=== PATIENT | male | born 1955 | race Caucasian/White ===

== ENCOUNTER 2019-05-05 14:17 | Outpatient (RCR) | payer OTHER, SELFPAY ==
[2019-05-05 14:54] VITALS: BP 164/72; PULSE 80; RESP 18; TEMP 36.9; BMI 29.2
--- NOTE | 2019-05-05 16:11 | RAD_ITS ---
STUDY: X-RAY - RIGHT TIBIA AND FIBULA REASON FOR EXAM: Male, 63 years old. right leg swelling with wounds. TECHNIQUE: 3 view(s) of the tibia and fibula were obtained. COMPARISON: None. FINDINGS: Normal visualized tibia. Normal visualized fibula. Nonspecific soft tissue swelling. RAD/Tibia & Fibula 2 Views IMPRESSION: Soft tissue swelling without evidence for radiopaque foreign bodies in the soft tissues, acute fracture or other significant bony pathology Electronically Signed: Fady Baez MD at 16:25 EDT , Service support ,
--- NOTE | 2019-05-05 16:17 | PN.PCM_ITS ---
(1) Ulcer of right lower extremity with fat layer exposed Status: Acute Current Visit: Yes Code(s): L97.912 - Non-pressure chronic ulcer of unspecified part of right lower leg with fat layer exposed (2) Skin ulcer of left foot Status: Acute Current Visit: Yes Code(s): L97.529 - Non-pressure chronic ulcer of other part of left foot with unspecified severity (3) Delayed wound healing Status: Acute Current Visit: Yes Code(s): T14.8XXD - Other injury of unspecified body region, subsequent encounter (4) Tobacco abuse Status: Acute Current Visit: Yes Code(s): Z72.0 - Tobacco use (5) Alcohol abuse Status: Acute Current Visit: Yes Code(s): F10.10 - Alcohol abuse, uncomplicated (6) Lower extremity edema Status: Acute Current Visit: Yes Code(s): R60.0 - Localized edema (7) Other specified peripheral vascular diseases Status: Acute Current Visit: Yes Code(s): I73.89 - Other specified peripheral vascular diseases (8) Psoriasis (a type of skin inflammation) Status: Acute Current Visit: Yes Code(s): L40.9 - Psoriasis, unspecified (9) Cellulitis of both lower extremities Status: Acute Current Visit: Yes Code(s): L03.115 - Cellulitis of right lower limb; L03.116 - Cellulitis of left lower limb Type of Wound Date of Service: 05/05/19 Chief Complaint: Right leg ulcer. left foot scab formation. Lower extremity skin irritation and redness History of Wound: This 63-year-old male was seen for right leg ulcer with an onset of approximately 3 weeks ago. He does not recall a trauma. He does have drainage. He also relates his legs have been swollen very irritated. He was placed on an oral antibiotic by his primary care provider and also a five day oral steroid course. They are less itchy and inflamed after he completed the steroid course. He is almost done completing the antibiotic he relates. The antibiotic that he was on was doxycycline. He had prior Unna boots applied. He does have some intermittent claudication however the exact distance which is occurs and is not confirmed. He relates he smokes 2 packs of cigarettes a day and drinks at least 10. Daily. He eats 1 meal a day. He denies rest paresthesias. He relates he has mild swelling in the legs however not at this time. Medications: Reviewed. Allergies: No known drug allergies. Past medical history: Hypertension, alcohol abuse, tobacco abuse. Social: As noted. Review of systems: Denies fever, chill, nausea, sore throat, cough, shortness of breath, chest pain, rest paresthesias, GI upset, dry eyes, rash to other areas of body. He reports leg discoloration, claudication Progress of Wound: Stable and new assessment today - Physical Exam Vital Signs Temp Pulse Resp BP 98.5 F 80 18 164/72 H 05/05/19 14:54 05/05/19 14:54 05/05/19 14:54 05/05/19 14:54 General: Alert, Oriented x3, Cooperative, No apparent distress HEENT: Atraumatic Extremities: No cyanosis, Capillary Refill Less than 3 Seconds, No Calf Tenderness - Negative Irina and Peck sign bilateral, Diminished Peripheral Pulses - Palpable DP and weak PT bilateral, Edema - Very mild bilateral lower extremities, Tenderness - Tenderness with also manipulation bilateral Skin: Ulcer/ Wound - There is skin discontinuity to the anterior central right leg with granular base. There appears to be some stellate shaped epithelialized cicatrix noted suggesting that maybe this started as a skin tear. There is no deep tissue exposed maceration or necrosis. The left medial heel does have some callus buildup and a questionably plaque-like formation. Upon gentle debridement there is some hemorrhagic tissue exposed and scant serous moisture. There is some adjacent skin invagination and no necrosis. He does have some rubor on dependency and some hyperpigmentation of the legs as well. There is no sherrie erythema, streaking, bogginess or fluctuance noted today to bilateral lower extremities, - - His lower extremity skin is hairless, thin, and atrophic bilateral Wound Measurements and Assessment WC - Nurse 1 - General Ulcer Measurement Start: 05/05/19 14:49 Freq: Status: Active Protocol: Activity Type Activity Date Activity User E-Sign Co-Sign Detail Recorded Client Recorded Date Recorded By Document 05/05/19 14:54 RB [id number] 05/05/19 15:03 RB 05/05/19 14:54 Wound Center Nurse 1 [Ulcer Assessment] 1. right tibia -Combined with other wound No -Current Size (cm) - Length 1.8 -Current Size (cm) - Width 1.2 -Current Size (cm) - Depth 0.1 -Total Square Cm 2.16 -Photo Taken Yes -Tunneling No -Undermining/Tunneling No -Circular Undermining No -Exudate Amt Small -Exudate Type Serosanguineous -Wound Margin Thickened -Granulation Amt Medium (34-66%) -Granulation Quality [place] -Slough/Fibrin Yes -Necrosis Amt Small (1-33%) -Necrotic Tissue Type Adherent Slough -Structure Exposed N/A -Texture (Kavita-wound Skin Appearance) Assessed -Moisture (Kavita-wound Skin Appearance Assessed,Dry/ ) Scaly -Color (Kavita-wound Skin Appearance) Assessed, Hemosiderin Staining -Temperature (Kavita-wound Skin No Abnormality Appearance) (Pt Warm) -Tenderness on Palpation (Kavita-wound No Skin Appearance) -Ulcer Cleansing Wound Cleanser -Foul Odor after Cleansing No -Anesthetic Used 4% Lidocaine Solution [Edema Assessment] -Lower Limb Edema Present Yes -Right Calf (cm) 36 -Right Ankle (cm) 24.5 -Left Calf (cm) 37 -Left Ankle (cm) 24 WC - Nurse 2 - General Ulcer CM Notes Start: 05/05/19 14:49 Freq: Status: Active Protocol: Activity Type Activity Date Activity User E-Sign Co-Sign Detail Recorded Client Recorded Date Recorded By Document 05/05/19 15:18 MW [id number] 05/05/19 15:28 MW 05/05/19 15:18 Wound Center Nurse 2 [Procedure/Treatment] 1. right tibia -Time 15:20 -Correct Patient Yes -Correct Side, Site, Position Yes -Correct Procedure Yes -Procedure Performed Yes -Type of Procedure Debridement -Clinical Debridement Subcutaneous -Post Debridement Size (cm) - Length 4.0 -Post Debridement Size (cm) - Width 3.0 -Post Debridement Size (cm) - Depth 0.1 -Total Square Cm 12.00 -Wound/Ulcer Outcome Not Healed -Ulcer Cleansing Rinsed/ Irrigated with Saline -Foul Odor after Cleansing No -Bioengineered Tissue No -Bleeding Controlled with Pressure -Offloading No -Treatment Response Procedure Tolerated Well [See Physician Procedure note for Specifics] Pain Scale: 0-10 Numeric [Pain] -Is Patient Pain Free? Yes Musculoskeletal: Muscle Wasting, Tenderness - Ulcer manipulation, - - Active range of motion digits and ankle in all directions Neurological: Sensory exam intact to light touch and pain Psych/Mental Status: Normal Affect, Appropriate Debridement Note Post-Debridement Measurements/Treatment WC - Nurse 2 - General Ulcer CM Notes Start: 05/05/19 14:49 Freq: Status: Active Protocol: Activity Type Activity Date Activity User E-Sign Co-Sign Detail Recorded Client Recorded Date Recorded By Document 05/05/19 15:18 MW [id number] 05/05/19 15:28 MW 05/05/19 15:18 Wound Center Nurse 2 1. right tibia -Time 15:20 -Correct Patient Yes -Correct Side, Site, Position Yes -Correct Procedure Yes -Procedure Performed Yes -Type of Procedure Debridement -Clinical Debridement Subcutaneous -Post Debridement Size (cm) - Length 4.0 -Post Debridement Size (cm) - Width 3.0 -Post Debridement Size (cm) - Depth 0.1 -Total Square Cm 12.00 -Wound/Ulcer Outcome Not Healed -Ulcer Cleansing Rinsed/ Irrigated with Saline -Foul Odor after Cleansing No -Bioengineered Tissue No -Bleeding Controlled with Pressure -Offloading No -Treatment Response Procedure Tolerated Well Pain Scale: 0-10 Numeric Is Patient Pain Free? Yes Wound debrided: anterior leg Laterality: Right Type of Debridement: Excisional debridement Anesthesia Used: 5% Lidocaine Gel Depth: in the subcutaneous layer Percentage of wound debrided: 100 Instrument Used: #15 blade Tissue Removed: fibrous, devitalized subcutaneous, biofilm, slough Severity: Fat Layer Exposed Amount of bleeding with debridement: Mild Bleeding Controlled with: Pressure Patient tolerated procedure well - Additional Wound Wound debrided: medial heel Laterality: Left Type of Debridement: Selective debridement Depth: Down to and including healthy tissue Instrument Used: #15 blade Tissue Removed: fibrous, devitalized tissue, biofilm, slough Severity: Limited To Skin Breakdown Amount of bleeding with debridement: Mild Bleeding Controlled with: Pressure Patient tolerated procedure: Patient tolerated procedure well Assessment/Plan Active Problems Ulcer of right leg (Acute) Ulcer of right lower extremity with fat layer exposed (Acute) Skin ulcer of left foot (Acute) Delayed wound healing (Acute) Tobacco abuse (Acute) Alcohol abuse (Acute) Lower extremity edema (Acute) Other specified peripheral vascular diseases (Acute) Psoriasis (a type of skin inflammation) (Acute) Cellulitis of both lower extremities (Acute) Assessment: Right leg ulcer, fat layer exposed. Left foot ulcer, skin layer exposed. Cellulitis resolving bilateral lower extremities. Skin dermatitis potentially psoriatic related versus other etiology. Peripheral vascular disease suspected. Lower extremity edema mild. Malnutrition suspected. Alcohol abuse. Tobacco abuse. Rule out trauma right leg Plan: I reviewed and discussed his case. Subcutaneous excisional debridement was performed on the right leg and selective debridement was performed in the left foot as noted in the clinical panel. To change the dressing daily with Aquacel Ag. To wash his legs gently with soap and water on a daily basis. To elevate the limbs at rest. I do not recommend additional antibiotic or steroid course orally at this time. He was advised to complete his antibiotic course. This will be monitored close. We discussed potential need for punch biopsy of the skin to work-up the etiology of his condition. I am concerned of his smoking history and his vascular leg appearance. Noninvasive arterial vascular studies were ordered. Noninvasive venous Doppler exams were also ordered. Recommend holding off on formal compression until we get the arterial results. We discussed the importance of proper nutrition and advised him to eat 3 well- balanced meals a day and to significantly reduce his alcohol intake. Smoking cessation was also discussed in detail. An x-ray of the right leg was ordered to rule out any prior injury due to the stellate shaped cicatrix appearance of the site. Baseline lab work was also ordered including CBC, CMP, C-reactive protein, and hemoglobin A1c. I answered all his questions. He was advised to return to the wound healing center in 1 week or call sooner if he is any questions or concerns.
[2019-05-05 16:38] LABS: Absolute Neutrophil Count 6.6 X10^3/uL (2.0-7.7); Basophil# 0.05 X10^3/uL; Basophil% 0.5 % (0-1); Eosinophil# 0.06 X10^3/uL; Eosinophils% 0.6 % (0-5); Hematocrit 43.9 % (40-54); Hemoglobin 16.1 g/dL (13.0-16.5); Lymphocyte % 15.8 % (19-41); Mean Corp Hgb Conc 36.7 g/dL (32-36); Mean Corpuscular Hgb 32.9 pg (27.0-32.0); Mean Corpuscular Volume 89.8 fL (80-94); Mean Platelet Vol. 8.7 fl (6.2-12.0); Monocyte# 1.18 X10^3/uL; Monocyte% 12.5 % (0-10); NRBC Flagged by Analyzer 0 % (0-5); Neutrophil # 6.63 X10^3/uL (2.7-7.7); Neutrophil % 70.1 % (47-70); Platelet Count 167 K/mm3 (150-450); RBC Distribution Width CV 13.1 % (11.6-14.6); RBC Distribution Width SD 42.7 fl (35.1-43.9); Red Blood Count 4.89 M/mm3 (4.6-6.2); White Blood Count 9.5 K/mm3 (4.4-11.0)
[2019-05-05 16:55] LABS: Hemoglobin A1c 5.8 % (4.2-6.3)
[2019-05-05 17:28] LABS: ALB/GLOB Ratio 0.9 RATIO (0.9-2.4); AST(SGOT) 53 U/L (15-37); Alanine Aminotransfer ALT/SGPT 86 U/L (16-61); Albumin, Serum 3.7 g/dL (3.2-5.0); Alkaline Phosphatase 70 U/L (45-117); Anion Gap 8 (5-15); BUN 12 mg/dL (7-18); BUN/Creat Ratio 11.5 RATIO (10-20); CRP < 2.90 mg/L (0.0-3.0); Calcium,Total 9.2 mg/dL (8.5-10.1); Chloride 91 mmol/L (98-107); Creatinine, Serum 1.04 mg/dL (0.70-1.30); EST Glomerular Filtration Rate 77 mL/min (>60); Est Glom Filt Rate - Afr Amer 93 mL/min (>60); Estimated Creatinine Clearance 74.59 ml/min; Globulin 4.2 g/dL (2.2-4.2); Glucose 110 mg/dL (74-106); Potassium 3.4 mmol/L (3.5-5.1); Protein, Total 7.9 g/dL (6.4-8.2); Sodium Level 128 mmol/L (136-145)
== END 2019-05-11 23:59 ==
LOC: WC 14:17
PROVIDERS: Referring Provider Podiatrist; Visit Provider Podiatrist
DX: I73.89 Other specified peripheral vascular diseases (principal); L97.812 Non-pressure chronic ulcer of other part of right lower leg with fat layer exposed; L97.421 Non-pressure chronic ulcer of left heel and midfoot limited to breakdown of skin; F10.10 Alcohol abuse, uncomplicated; Z72.0 Tobacco use; L40.9 Psoriasis, unspecified; L03.115 Cellulitis of right lower limb; L03.116 Cellulitis of left lower limb; I10 Essential (primary) hypertension; Z79.899 Other long term (current) drug therapy
CPT/HCPCS: 11042; 36415; 73590; 80053; 83036; 85025; 86140; 99213; G0463

== ENCOUNTER 2019-05-26 12:30 | Outpatient (RCR) | payer MEDICAID, SELFPAY ==
[2019-05-12 01:02] VITALS: BP 164/72; PULSE 80; RESP 18; TEMP 36.9
[2019-05-12 11:35] VITALS: BP 160/44; PULSE 72; RESP 18; TEMP 36.3; BMI 29.2
--- NOTE | 2019-05-12 14:42 | PCM.WC.PN ---
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 Code(s): L97.521 - Non-pressure chronic ulcer of other part of left foot limited to breakdown of skin (2) Ulcer of right lower extremity with fat layer exposed Status: Chronic Code(s): L97.912 - Non-pressure chronic ulcer of unspecified part of right lower leg with fat layer exposed (3) Delayed wound healing Status: Chronic Code(s): T14.8XXD - Other injury of unspecified body region, subsequent encounter (4) Tobacco abuse Status: Chronic Code(s): Z72.0 - Tobacco use (5) Alcohol abuse Status: Chronic Code(s): F10.10 - Alcohol abuse, uncomplicated (6) Lower extremity edema Status: Chronic Code(s): R60.0 - Localized edema (7) Other specified peripheral vascular diseases Status: Suspected Code(s): I73.89 - Other specified peripheral vascular diseases Type of Wound Date of Service: 05/12/19 Chief Complaint: Right leg ulcer. left foot scab formation. Lower extremity skin irritation and redness History of Wound: This 63-year-old male was seen for right leg ulcer with an onset of approximately 4 weeks ago. He does not recall a trauma. He does have drainage. He also relates his legs have been swollen very irritated. He was placed on an oral antibiotic by his primary care provider and also a five day oral steroid course. They are less itchy and inflamed after he completed the steroid course. He is almost done completing the antibiotic he relates. The antibiotic that he was on was doxycycline. He had prior Unna boots applied. He does have some intermittent claudication however the exact distance which is occurs and is not confirmed. He relates he smokes 2 packs of cigarettes a day and drinks at least 10 beers Daily. He eats 1 meal a day. He denies rest paresthesias. He relates he has mild swelling in the legs however not at this time. His noninvasive vascular studies were temporarily canceled due to the coronavirus pandemic and will be rescheduled when it is safer to enter an additional healthcare facility or if he has a critical urgent status change. Progress of Wound: Improving bilateral - Physical Exam Vital Signs Temp Pulse Resp BP 97.3 F L 72 18 160/44 H 05/12/19 11:35 05/12/19 11:35 05/12/19 11:35 05/12/19 11:35 General: Alert, Oriented x3, Cooperative, No apparent distress HEENT: Atraumatic Extremities: No cyanosis, Capillary Refill Less than 3 Seconds, Diminished Peripheral Pulses, Edema Skin: Ulcer/ Wound - No purulence, erythema, streaking, odor, infection. Healing is noted to both sites. There is just some hemorrhagic tissue exposed to both sites and mild serous drainage to the left medial heel. The adjacent skin is hairless, atrophic, hyperpigmented and dysvascular in appearance. There is less skin scaling noted and his inflammatory processes also appear to decrease Wound Measurements and Assessment WC - Nurse 1 - General Ulcer Measurement Start: 05/12/19 11:35 Freq: Status: Active Protocol: Activity Type Activity Date Activity User E-Sign Co-Sign Detail Recorded Client Recorded Date Recorded By Document 05/12/19 11:35 ROM [id number] 05/12/19 11:38 ROM 05/12/19 11:35 Wound Center Nurse 1 [Ulcer Assessment] 1. right tibia -Combined with other wound No -Current Size (cm) - Length 0.1 -Current Size (cm) - Width 0.1 -Current Size (cm) - Depth 0.1 -Total Square Cm 0.01 -Photo Taken No -Epithelialization Large 67-100% -Tunneling No -Undermining/Tunneling No -Circular Undermining No -Exudate Amt None Present -Wound Margin Flat & Intact -Granulation Amt None Present (0 %) -Slough/Fibrin Yes -Necrosis Amt Large (67-100%) -Necrotic Tissue Type Adherent Slough -Structure Exposed N/A -Texture (Kavita-wound Skin Appearance) Assessed, Localized Edema -Moisture (Kavita-wound Skin Appearance Assessed,Dry/ ) Scaly -Color ([place]-wound Skin Appearance) Assessed -Temperature (Kavita-wound Skin No Abnormality Appearance) (Pt Warm) -Tenderness on Palpation (Kavita-wound No Skin Appearance) -Ulcer Cleansing Rinsed/ Irrigated with Saline -Foul Odor after Cleansing No -Anesthetic Used 4% Lidocaine Solution [Edema Assessment] -Lower Limb Edema Present Yes -Right Calf (cm) 36.7 -Right Ankle (cm) 24.6 -Left Calf (cm) 36.8 -Left Ankle (cm) 24.8 WC - Nurse 2 - General Ulcer CM Notes Start: 05/12/19 11:35 Freq: Status: Active Protocol: Activity Type Activity Date Activity User E-Sign Co-Sign Detail Recorded Client Recorded Date Recorded By Document 05/12/19 11:38 JF [id number] 05/12/19 11:40 05/12/19 11:38 Wound Center Nurse 2 [Procedure/Treatment] 1. right tibia -Correct Patient No -Correct Side, Site, Position No -Correct Procedure No -Procedure Performed No -Wound/Ulcer Outcome Not Healed -Ulcer Cleansing Rinsed/ Irrigated with Saline -Foul Odor after Cleansing No [See Physician Procedure note for Specifics] Pain Scale: 0-10 Numeric [Pain] -Is Patient Pain Free? Yes Musculoskeletal: No Tenderness to Palpation of Joints or Extremities, Muscle Wasting Neurological: Sensory exam intact to light touch and pain Psych/Mental Status: Normal Affect, Appropriate Debridement Note Post-Debridement Measurements/Treatment - Nurse 2 - General Ulcer Notes Start: 05/12/19 11:35 Freq: Status: Active Protocol: Activity Type Activity Date Activity User E-Sign Co-Sign Detail Recorded Client Recorded Date Recorded By Document 05/12/19 11:38 JF [id number] 05/12/19 11:40 05/12/19 11:38 Wound Center Nurse 2 1. right tibia -Correct Patient No -Correct Side, Site, Position No -Correct Procedure No -Procedure Performed No -Wound/Ulcer Outcome Not Healed -Ulcer Cleansing Rinsed/ Irrigated with Saline -Foul Odor after Cleansing No Pain Scale: 0-10 Numeric Is Patient Pain Free? Yes Wound debrided: right leg and left medial heel No debridement was completed today - Very superficial some hemorrhagic tissue noted only Assessment/Plan Assessment: Right leg ulcer, fat layer exposed?improving. Left foot ulcer, skin layer exposed?improving. Cellulitis resolving bilateral lower extremities. Skin dermatitis potentially psoriatic related versus other etiology. Peripheral vascular disease suspected. Lower extremity edema mild. Malnutrition suspected. Alcohol abuse. Tobacco abuse Plan: I reviewed and discussed his case. Both ulcer sites have significantly improved and no debridement was performed today. There is only some hemorrhagic tissue and progressive peripheral epithelialization noted. To change the dressing daily with Aquacel Ag and Adaptic. To wash his legs gently with soap and water on a daily basis. To elevate the limbs at rest. I do not recommend additional antibiotic or steroid course orally at this time. He was advised to complete his antibiotic course. This will be monitored close. We discussed potential need for punch biopsy of the skin to work-up the etiology of his condition. I am concerned of his smoking history and his vascular leg appearance. Noninvasive arterial vascular studies were ordered and this is temporarily placed on hold until the coronavirus pandemic passes. Noninvasive venous Doppler exams were also ordered and this will be rescheduled. I recommend only performing light compression therapy of Tubigrip until we further confirm his arterial status. We discussed the importance of proper nutrition and advised him to eat 3 well-balanced meals a day and to significantly reduce his alcohol intake. Smoking cessation was also discussed in detail. An x-ray of the right leg was ordered to rule out any prior injury due to the stellate shaped cicatrix appearance of the site. This was negative for acute fracture, dislocation, foreign body, or other infectious changes to the soft tissue or bone. Baseline lab work was also ordered including CBC, CMP, C-reactive protein, and hemoglobin A1c. His white blood cell count was 9.5. C-reactive protein level was normal. Hemoglobin A1c was 5.8%. There were no other gross abnormalities noted. I answered all his questions. He was advised to return to the wound healing center in 1 week or call sooner if he is any questions or concerns. I suspect underlying medical condition is contributing to his presentation in addition to his suspected peripheral vascular disease. Other work-up may warrant punch biopsy of the skin or other rheumatological or medical work-up.
--- NOTE | 2019-05-26 13:28 | PN.PCM_ITS ---
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 to breakdown of skin (2) Ulcer of right lower extremity with fat layer exposed Status: Resolved Current Visit: Yes Code(s): L97.912 - Non-pressure chronic ulcer of unspecified part of right lower leg with fat layer exposed (3) Delayed wound healing Status: Chronic Current Visit: Yes Code(s): T14.8XXD - Other injury of unspecified body region, subsequent encounter (4) Tobacco abuse Status: Chronic Current Visit: Yes Code(s): Z72.0 - Tobacco use (5) Alcohol abuse Status: Chronic Current Visit: Yes Code(s): F10.10 - Alcohol abuse, uncomplicated (6) Lower extremity edema Status: Chronic Current Visit: Yes Code(s): R60.0 - Localized edema (7) Other specified peripheral vascular diseases Status: Suspected Current Visit: Yes Code(s): I73.89 - Other specified peripheral vascular diseases (8) Skin inflammation Status: Acute Current Visit: Yes Code(s): L08.9 - Local infection of the skin and subcutaneous tissue, unspecified Type of Wound Date of Service: 05/26/19 Chief Complaint: Right leg ulcer healing. left foot ulcer. Lower extremity skin irritation and redness, now affecting the upper extremities and back skin History of Wound: This 63-year-old male was seen for right leg ulcer with an onset of approximately 1-1/2 months ago. This is a telehealth visit and his sister, Nancy (cell [phone]) help facilitate this interaction. He does not recall a trauma. He does have drainage that is described as a weeping to the right leg and also the left foot. He also has some new left foot cracking that is very raw. He did follow-up with his primary care provider Patsy Montenegro. He was placed on an updated round of oral antibiotic and oral steroids. He relates the itching and redness have returned to his legs and he is concerned of all of this inflammation. He also now relates that it is involving both upper extremities and the skin on his back. He relates he smokes 2 packs of cigarettes a day. His noninvasive vascular studies were temporarily canceled due to the coronavirus pandemic and will be rescheduled when it is safer to enter an additional healthcare facility or if he has a critical urgent status change. This will be rescheduled hopefully soon. He relates he also needs help ordering additional supplies. He wears Tubigrip's for edema management. He denies fever, chill, nausea vomiting, or odor. He denies taking his temperature in a measured manner.This is a telehealth visit performed at 12:30 PM today to avoid healthcare exposure during the coronavirus pandemic. He verbally co nsented to completing the telehealth visit from his home with the provider at the wound healing center. Anibal understands this is a medical encounter and will be charted and princess part of his insurance claim as well. The duration of the telehealth vision that included audio and camera use lasted 16 minutes and 35 seconds. Progress of Wound: Wound improvement right leg. Stable left foot ulcer. Worsening skin inflammation to upper and lower extremities - Physical Exam Vital Signs Temp Pulse Resp BP 97.3 F L 72 18 160/44 H 05/12/19 11:35 05/12/19 11:35 05/12/19 11:35 05/12/19 11:35 General: Alert, Oriented x3, Cooperative, No apparent distress Extremities: No cyanosis, Edema - Mild bilateral lower extremities Skin: Ulcer/ Wound - There is no purulence on expression noted, no distinct erythema or streaking. He does have diffuse violaceous and ruborous changes to the lower extremities that is rash like, dry, scaling. It is also noted he has these identical skin changes to the upper extremities that is directly visualized via telehealth and he reports this is also on his back as well. New skin changes include the dorsal left foot has a crack with granular tissue exposed right at the level of the ankle crease Musculoskeletal: Muscle Wasting Psych/Mental Status: Normal Affect, Appropriate Debridement Note Post-Debridement Measurements/Treatment WC - Nurse 2 - General Ulcer CM Notes Start: 05/12/19 11:35 Freq: Status: Active Protocol: Activity Type Activity Date Activity User E-Sign Co-Sign Detail Recorded Client Recorded Date Recorded By Document 05/12/19 11:38 ROM [id number] 05/12/19 11:40 ROM 05/12/19 11:38 Wound Center Nurse 2 1. right tibia -Correct Patient No -Correct Side, Site, Position No -Correct Procedure No -Procedure Performed No -Wound/Ulcer Outcome Not Healed -Ulcer Cleansing Rinsed/ Irrigated with Saline -Foul Odor after Cleansing No Pain Scale: 0-10 Numeric Is Patient Pain Free? Yes No debridement was completed today - Telehealth visit Assessment/Plan Active Problems Skin inflammation (Acute) Non-pressure chronic ulcer of other part of left foot limited to breakdown of skin (Chronic) Delayed wound healing (Chronic) Tobacco abuse (Chronic) Alcohol abuse (Chronic) Lower extremity edema (Chronic) Assessment: Right leg ulcer, fat layer exposed?improving. Left foot ulcer, skin layer exposed?stable. Skin dermatitis potentially psoriatic related versus other etiology. Peripheral vascular disease suspected. Lower extremity edema mild. Malnutrition suspected. Alcohol abuse. Tobacco abuse Plan: I reviewed and discussed his case. The right leg ulcer sites has significantly improved and no debridement was performed today because this is a telehtealth visit. The left ulcer appears stable and new skin cracking to dorsal left foot is noted. To change the dressing daily with hydrogel and Adaptic. Nursing staff will help him order additional wound care supplies and this will be coordinated. To wash his legs gently with soap and water on a daily basis. To avoid soaking.To elevate the limbs at rest. Alternative compression and primary wound care dressings will be considered and changed with caution as his vascular status has not been confirmed. An unna boot may also be considered at future visits. I am concerned about his full body skin inflammatory changes that have appeared to exacerbate since his last in office visit. I am concerned of his smoking history and his vascular leg appearance. Noninvasive arterial vascular studies were ordered and this is temporarily placed on hold until the coronavirus pandemic passes. Noninvasive venous Doppler exams were also ordered and this will be rescheduled. I recommend only performing light compression therapy of Tubigrip until we further confirm his arterial status. We previously also discussed the importance of proper n utrition and advised him to eat 3 well-balanced meals a day and to significantly reduce his alcohol intake. Smoking cessation was also discussed in detail. An x-ray of the right leg was ordered to rule out any prior injury due to the stellate shaped cicatrix appearance of the site. This was negative for acute fracture, dislocation, foreign body, or other infectious changes to the soft tissue or bone. Baseline lab work was also ordered including CBC, CMP, C- reactive protein, and hemoglobin A1c. His white blood cell count was 9.5. C- reactive protein level was normal. Hemoglobin A1c was 5.8%. There were no other gross abnormalities noted. I suspect underlying medical condition is contributing to his presentation in addition to his suspected peripheral vascular disease. Other work-up may warrant punch biopsy of the skin or other rheumatological or medical work-up. I am concerned about him using additional antibiotics for this does not seem consistent with an infection at this time. He may also be having a rebound inflammatory process to oral and / or topical steriods which is a concern with continued use. I would like to futher review his medical information and management with his primary care provider Patsy Montenegro who will be contacted via a call. We discussed potential need for punch biopsy of the skin to work-up the etiology of his condition. I answered all his questions. He was advised to return to the wound healing center in 1 week or call sooner if he is any questions or concerns. He understands he may see an additional provider whom is currently contracted with his insurance. If this provider is not available, I will continue to see him during the duration of his current condition for continuity of medical management.
== END 2019-06-10 23:59 ==
LOC: WC 12:30
PROVIDERS: Referring Provider Podiatrist; Visit Provider Podiatrist
DX: L97.521 Non-pressure chronic ulcer of other part of left foot limited to breakdown of skin (principal); L97.812 Non-pressure chronic ulcer of other part of right lower leg with fat layer exposed; L03.116 Cellulitis of left lower limb; L03.115 Cellulitis of right lower limb; I73.9 Peripheral vascular disease, unspecified; R60.0 Localized edema; F10.10 Alcohol abuse, uncomplicated; F17.210 Nicotine dependence, cigarettes, uncomplicated; Z79.899 Other long term (current) drug therapy
CPT/HCPCS: 99213; G0463

== ENCOUNTER 2019-07-09 14:00 | Outpatient (RCR) | payer MEDICAID, SELFPAY ==
[2019-05-12 11:35] VITALS: BMI 29.2
[2019-06-11 00:20] VITALS: BP 160/44; PULSE 72; RESP 18; TEMP 36.3
[2019-06-25 14:52] VITALS: BP 176/97; PULSE 74; RESP 16; TEMP 36.6; BMI 29.2
--- NOTE | 2019-06-25 18:03 | PCM.HP.STD ---
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 psoriasis The patient is a 63 year old M who presents to the wound healing center for treatment and evaluation of skin breakdown and irritation. He was recently seen by Dr. Andino through a telehealth visit and treated with hydrogel and adaptic dressings to his leg's bilaterally and has had improvement but still does have an area of his left medial foot that has thick scaly plaque-like appearance. He underwent lab testing but has not had vascular testing due to the COVID-19 pandemic. An xray was also preformed that did not identify any fracture or undrelying bony etiology that would be causing his skin irritation. Labs and xrays were reviewed and there is no underlying diabetes at this time although his blood sugar was slightly elevated on CMP, his A1C was 5.8%, no significant renal disease or malnutrition seen on CMP, he does have elevated LFTs with h/o fatty liver in the past and hyponatremia, question alcohol abuse history. He does not have elevated CRP. He denies biopsy of the lesion of his left foot, although it was mentioned that this was recommended by Dr. Andino to his PCP. He reports that he has experience improvement with Clobetasol cream in the past to the area. He has been applying vaseline to his legs and they are improved. He is relatively unkempt in appearance and smells heavily of tobacco/cigarette smoke. Past Medical History Past Medical History (Chronic Problems): Chronic Problems Skin inflammation (Chronic) Non-pressure chronic ulcer of other part of left foot limited to breakdown of skin (Chronic) Skin ulcer of left foot (Chronic) Delayed wound healing (Chronic) Tobacco abuse (Chronic) Alcohol abuse (Chronic) Lower extremity edema (Chronic) Allergies No Known Allergies Allergy (Verified 05/05/19 14:49) Home Medications: Ambulatory Orders Medication Instructions Recorded Amlodipine Besylate/Benazepril 1 ea PO DAILY 05/05/19 [Amlodipine-Benazepril 10-20 mg] Doxycycline 100 mg PO BID 05/05/19 Hydrochlorothiazide [Hctz] 25 mg PO DAILY 05/05/19 Metoprolol Succinate 100 mg PO DAILY 05/05/19 Tiotropium Br/Olodaterol HCl 4 gm IH DAILY 05/05/19 [Stiolto Respimat Inhal [place]] Smoking Status: Heavy Smoker (>10/day) Tobacco Use: Cigarettes Alcohol: Occasional Drugs: None Review of Systems Constitutional: Denies: Chills, Fever, Weight Change HEENT: Denies: Head Aches, Sinus Congestion, Sinus Drainage Cardiovascular: Denies: Chest Pain, Palpitations Respiratory: Reports: Cough. Denies: Shortness of Breath, Wheezing Gastrointestinal: Denies: Abdominal Pain, Nausea, Vomiting Genitourinary: Denies: Dysuria Musculoskeletal: Denies: Joint Pain, Joint Tenderness Skin: Reports: Rash, Skin Changes Neurological: Denies: Numbness, Tingling, Focal weakness Psychiatric: Denies: Anxiety, Depression, Homicidal Ideations, Suicidal Ideations Hematologic/ Lymphatic: Denies: Easy Bruising, Easy Bleeding VTE Information - Inpt Only VTE Present on Admission: No - ambulatory patient - Physical Exam Vitals/I&O's: Vital Signs Temp Pulse Resp BP 97.9 F 74 16 176/97 H 06/25/19 14:52 06/25/19 14:52 06/25/19 14:52 06/25/19 14:52 Oxygen Delivery Method Room Air Weight: 89.811 kg Body Mass Index (BMI) 29.2 General: Alert, Oriented x3, Cooperative HEENT: Atraumatic, PERRLA, EOMI, Normocephalic Oral: Moist Mucosa Abdomen: Soft, Non Tender Extremities: Diminished Peripheral Pulses, Edema Skin: Ulcer/ Wound Psych/Mental Status: Normal Affect, Appropriate Assessment/Plan All Active Problems Ulcer of right leg (Acute) Ulcer of right lower extremity with fat layer exposed (Resolved) Cellulitis of both lower extremities (Acute) Laureano's legs were evaluated today and no debridement was performed as there were no open wounds. Will have him use clobetasol to his left medial foot and continue vaseline to his lower legs bilaterally and obtain vascular testing to r/o PAD. If lack of improvement in the left medial foot plaque with steroids would perform biopsy. Encouraged him to call with any edema, increased odor, erythema or drainage or worsening of his legs. Will f/u in 2 weeks.
[2019-07-02 15:59] VITALS: BP 148/63; PULSE 81; RESP 18; TEMP 36.6; BMI 29.2
--- NOTE | 2019-07-02 19:03 | PN.PCM_ITS ---
(1) Skin inflammation Status: Chronic Current Visit: Yes Code(s): L08.9 - Local infection of the skin and subcutaneous tissue, unspecified (2) Non-pressure chronic ulcer of other part of left foot limited to breakdown of skin Status: Chronic Current Visit: Yes Code(s): L97.521 - Non-pressure chronic ulcer of other part of left foot limited to breakdown of skin (3) Skin ulcer of left foot Status: Chronic Current Visit: Yes Qualifiers: Non-pressure ulcer stage: limited to breakdown of skin Qualified Code(s): L97.521 - Non-pressure chronic ulcer of other part of left foot limited to breakdown of skin Code(s): L97.529 - Non-pressure chronic ulcer of other part of left foot with unspecified severity (4) Tobacco abuse Status: Chronic Current Visit: Yes Code(s): Z72.0 - Tobacco use (5) Lower extremity edema Status: Chronic Current Visit: Yes Code(s): R60.0 - Localized edema (6) Psoriasis (a type of skin inflammation) Status: Suspected Current Visit: Yes Code(s): L40.9 - Psoriasis, unspecified Type of Wound Date of Service: 07/09/19 Chief Complaint: left foot ulcers History of Wound: This 63-year-old male was seen previously by Dr. Andino for ulcer of his right leg and skin irritation as well as ulceration of left medial foot. He also has left foot cracking that is very raw. He has had follow-up with his primary care provider Patsy Montenegro as well as dermatology. He was recently treated with oral antibiotic and 2 courses of oral steroids with improvemnt in his skin irritation and plaques. He has used clobetasol previously to his psoriasis and most recently has been prescribed triamcinolone acetonide by dermatology in the last 2 weeks which he notes has significantly improved his skin irritation since he was seen by Dr. Andino. He relates the itching and redness have improved to his legs and both upper extremities and the skin on his back. He smokes 2 packs of cigarettes a day. His noninvasive vascular studies were temporarily canceled due to the coronavirus pandemic and have been rescheduled for 07/09/2019. He wears Tubigrip's for edema management. He denies fever, chill, nausea vomiting, or odor. 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 He has been using steroid cream and has notable improvement with decrease in drainage. He does note that in the last week he has had cracking of skin between his toes and at crease of base of his grea toes b/l. - Physical Exam Vital Signs Temp Pulse Resp BP 97.8 F 81 18 148/63 H 07/02/19 15:59 07/02/19 15:59 07/02/19 15:59 07/02/19 15:59 General: Alert, Oriented x3, Cooperative, No apparent distress, - - heavy odor of tobacco HEENT: Atraumatic, Normocephalic Oral: Moist Mucosa Extremities: Edema Skin: Ulcer/ Wound Wound Measurements and Assessment WC - Nurse 1 - General Ulcer Measurement Start: 06/21/19 15:22 Freq: Status: Active Protocol: Activity Type Activity Date Activity User E-Sign Co-Sign Detail Recorded Client Recorded Date Recorded By Document 07/02/19 15:59 [facility] [id number] 07/02/19 16:06 [facility] 07/02/19 15:59 Wound Center Nurse 1 [Ulcer Assessment] #2- L PLANTAR TOE (1-4) CREASE CLUSTER /FISSURES -Combined with other wound No -Current Size (cm) - Length 0.3 -Current Size (cm) - Width 17.5 -Current Size (cm) - Depth 0.3 -Total Square Cm 5.25 -Date of Last Picture (Recall this 07/02/19 field) -Photo Taken Yes -Epithelialization None Present -Tunneling No -Undermining/Tunneling No -Circular Undermining No -Exudate Amt None Present -Wound Margin Distinct, Outline Attached -Granulation Amt Medium (34-66%) -Granulation Quality Red -Slough/Fibrin Yes -Necrosis Amt Small (1-33%) -Necrotic Tissue Type Adherent Slough -Texture (Kavita-wound Skin Appearance) Assessed,Callus ,Scarring -Moisture (Kavita-wound Skin Appearance Assessed,Dry/ ) Scaly -Color (Kavita-wound Skin Appearance) Assessed -Temperature (Kavita-wound Skin No Abnormality Appearance) (Pt Warm) -Tenderness on Palpation (Kavita-wound No Skin Appearance) -Ulcer Cleansing SOAPY WATER -Foul Odor after Cleansing No -Anesthetic Used 4% Lidocaine Solution WC - Nurse 2 - General Ulcer CM Notes Start: 06/21/19 15:22 Freq: Status: Active Protocol: Activity Type Activity Date Activity User E-Sign Co-Sign Detail Recorded Client Recorded Date Recorded By Document 07/02/19 16:39 DV [id number] 07/02/19 17:02 DV 07/02/19 16:39 Wound Center Nurse 2 [Procedure/Treatment] #3 LEFT MEDIAL HEEL -Time 16:59 -Correct Patient Yes -Correct Side, Site, Position Yes -Correct Procedure Yes -Procedure Performed Yes -Type of Procedure Debridement -Clinical Debridement Selective -Post Debridement Size (cm) - Length 5.0 -Post Debridement Size (cm) - Width 6.0 -Post Debridement Size (cm) - Depth 0.1 -Total Square Cm 30.00 #2- L PLANTAR TOE (1-4) CREASE CLUSTER /FISSURES -Time 16:48 -Correct Patient Yes -Correct Side, Site, Position Yes -Correct Procedure Yes -Procedure Performed Yes -Type of Procedure Debridement -Clinical Debridement Selective -Post Debridement Size (cm) - Length 0.3 -Post Debridement Size (cm) - Width 5.0 -Post Debridement Size (cm) - Depth 0.1 -Total Square Cm 1.50 -Wound/Ulcer Outcome Not Healed -Ulcer Cleansing Rinsed/ Irrigated with Saline -Foul Odor after Cleansing No -Bioengineered Tissue No -Bleeding Controlled with Pressure -Offloading No [See Physician Procedure note for Specifics] Pain Scale: 0-10 Numeric [Pain] -Is Patient Pain Free? Yes Psych/Mental Status: Normal Affect, Appropriate Debridement Note Post-Debridement Measurements/Treatment WC - Nurse 2 - General Ulcer CM Notes Start: 06/21/19 15:22 Freq: Status: Active Protocol: Activity Type Activity Date Activity User E-Sign Co-Sign Detail Recorded Client Recorded Date Recorded By Document 06/25/19 15:19 DV [id number] 06/25/19 15:23 DV Document 07/02/19 16:39 DV [id number] 07/02/19 17:02 DV 06/25/19 07/02/19 15:19 16:39 Wound Center Nurse 2 #3 LEFT MEDIAL HEEL -Time 16:59 -Correct Patient Yes -Correct Side, Site, Position Yes -Correct Procedure Yes -Procedure Performed Yes -Type of Procedure Debridement -Clinical Debridement Selective -Post Debridement Size (cm) - Length 5.0 -Post Debridement Size (cm) - Width 6.0 -Post Debridement Size (cm) - Depth 0.1 -Total Square Cm 30.00 #2- L PLANTAR TOE (1-4) CREASE CLUSTER/ FISSURES -Time 16:48 -Correct Patient Yes -Correct Side, Site, Position Yes -Correct Procedure Yes -Procedure Performed Yes -Type of Procedure Debridement -Clinical Debridement Selective -Post Debridement Size (cm) - Length 0.3 -Post Debridement Size (cm) - Width 5.0 -Post Debridement Size (cm) - Depth 0.1 -Total Square Cm 1.50 -Wound/Ulcer Outcome Not Healed -Ulcer Cleansing Rinsed/ Irrigated with Saline -Foul Odor after Cleansing No -Bioengineered Tissue No -Bleeding Controlled with Pressure -Offloading No 1. right tibia -Time 15:22 -Correct Patient Yes -Correct Side, Site, Position Yes -Correct Procedure No -Procedure Performed No -Post Debridement Size (cm) - Length 0 -Post Debridement Size (cm) - Width 0 -Post Debridement Size (cm) - Depth 0 -Total Square Cm 0 -Wound/Ulcer Outcome Healed- Epithelialized Pain Scale: 0-10 Numeric Is Patient Pain Free? Yes Yes Wound debrided: left medial heel Laterality: Left Type of Debridement: Excisional debridement Anesthesia Used: 4% Lidocaine Solution, 5% Lidocaine Gel Depth: Down to and including healthy tissue, in the subcutaneous layer Percentage of wound debrided: 100 Instrument Used: #15 blade, Forceps Tissue Removed: yellow slough, devitalized tissue Severity: Fat Layer Exposed Amount of bleeding with debridement: Mild Bleeding Controlled with: Compression and gauze Patient tolerated procedure well - Additional Wound Wound debrided: right plantar great toe Laterality: Right Type of Debridement: Excisional debridement Anesthesia Used: 4% Lidocaine Solution Depth: Down to and including healthy tissue, in the subcutaneous layer Percentage of wound debrided: 100 Instrument Used: #15 blade, Forceps Tissue Removed: Yellow slough, devitalized tissue Severity: Fat Layer Exposed Amount of bleeding with debridement: Mild Bleeding Controlled with: Compression and gauze Patient tolerated procedure: Patient tolerated procedure well Assessment/Plan Active Problems Skin inflammation (Chronic) 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 Left foot ulcer, skin layer exposed?stable. Skin dermatitis potentially psoriatic related versus other etiology. Peripheral vascular disease suspected. Lower extremity edema mild. Malnutrition suspected. Alcohol abuse. Tobacco abuse Plan: The left medial foot ulcer is improved. The creases of his toes of his left foot were evaluated and debrided today as well and I feel they are related to his psoriasis and dishydrosis. He will continue to use triamcinolone and gauze. He will change the dressing daily. He is to wash his legs gently with soap and water on a daily basis. To avoid soaking. To elevate the limbs at rest. I am concerned of his smoking history and his vascular leg appearance. Noninvasive arterial vascular studies were ordered and this is temporarily placed on hold until the coronavirus pandemic passes. Noninvasive venous Doppler exams were also ordered and rescheduled. We previously also discussed the importance of proper nutrition and advised him to eat 3 well-balanced meals a day and to significantly reduce his alcohol intake. Smoking cessation was also discussed in detail. Hemoglobin A1c was 5.8%. There were no other gross abnormalities noted. He will follow up in 2 weeks or sooner if needed. He is scheduled for vascular tests on 07/09/2019.
--- NOTE | 2019-07-09 13:28 | ART_ITS ---
Reason For Study: Left heel ulcer Procedure A bilateral lower extremity continuous wave Doppler with analog waveform analysis,segmental pressures,and ankle brachial indexes without exercise. Left Segmental Pressures Left brachial= 181mmHg. Left posterior tibial artery = 198mmHg. Left dorsalis pedis artery = 183mmHg. Left digit = 171 mmHg. The left dorsalis pedis waveforms are triphasic. The left posterior tibial artery waveforms are triphasic. Right Segmental Pressures Right brachial= 178mmHg. Right posterior tibial artery = 200mmHg. Right dorsalis pedis artery = 215mmHg. Right digit = >254 mmHg. The right dorsalis pedis waveforms are triphasic. The right posterior tibial artery waveforms are triphasic. Indices The right ankle brachial index by the dorsalis pedis is 1.19. The right ankle brachial index by the posterior tibial artery is 1.10. The right digital-brachial index is NC. The left ankle brachial index by the dorsalis pedis is 1.01. The left ankle brachial index by the posterior tibial artery is 1.09. The left digital-brachial index is 0.94. Interpretation Summary Triphasic Doppler waveforms are noted at ankle level bilaterally. Pulse-volume recordings appear satisfactory at all levels bilaterally, including low-thigh, calf, ankle, and digital levels. Resting ankle-brachial indices are normal bilaterally. The right digital-brachial index could not be determined due to the non-compressibility of the vasculature. The left digital-brachial index is normal. There is no evidence of significant arterial occlusive disease in the lower extremities bilaterally. Ordering Physician: Dhara Orantes Referring Physician: Patsy Montenegro Performed By: Lydia Blevins RVT
--- NOTE | 2019-07-09 13:28 | VDLE_ITS ---
Reason For Study: Venous insufficiency RIGHT LEFT CFV is compressible, spontaneous, phasic, CFV is compressible, spontaneous, phasic, competent and demonstrates normal competent, and demonstrates normal augmentation. augmentation. FV is compressible, spontaneous, phasic, FV is compressible, spontaneous, phasic, competent and demonstrates normal competent and demonstrates normal augmentation. augmentation. POP V is compressible, spontaneous, phasic, POP V is compressible, spontaneous, phasic, competent and demonstrates normal competent and demonstrates normal augmentation. augmentation. T/P Trunk is compressible. T/P Trunk is compressible. PTV is compressible. PTV is compressible. RT PerV is compressible. LT PerV is compressible. SFJ is competent and measures 0.83 x 0.92 cm. SFJ is competent and measures 0.74 x 0.83 cm. GSV proximal thigh measures 0.28 x 0.26 cm. GSV proximal thigh measures 0.35 x 0.35 cm. GSV at knee measures 0.38 x 0.42 cm. GSV at knee measures 0.35 x 0.34 cm. GSV is competent throughout. GSV is competent throughout. SSV at junction is competent and measures SSV at junction is competent and measures 0.13 x 0.15 cm. 0.14 x 0.14 cm. Procedure Exam performed in department. A preliminary report was called and/or faxed to . Interpretation Summary Deep veins of the lower extremities are bilaterally patent and compressible segmentally. There is no evidence of deep vein thrombosis on either side. Valvular competence appears intact within the proximal deep venous systems bilaterally. The great saphenous veins appear bilaterally patent and compressible segmentally. Sapheno-femoral junctions are bilaterally competent . Valvular competence appears to be intact segmentally within the great saphenous veins bilaterally. Small saphenous veins are patent and competent bilaterally. Ordering Physician: Dhara Orantes Referring Physician: Patsy Montenegro Performed By: Lydia Blevins RVT
== END 2019-07-11 23:59 ==
LOC: CVS 14:00
PROVIDERS: Referring Provider Family Medicine; Visit Provider Family Medicine
DX: L97.912 Non-pressure chronic ulcer of unspecified part of right lower leg with fat layer exposed (principal); L30.9 Dermatitis, unspecified; I73.9 Peripheral vascular disease, unspecified; I87.2 Venous insufficiency (chronic) (peripheral)
CPT/HCPCS: 93923; 93970; 97597; 97598; 99213; G0463

== ENCOUNTER → 2019-07-09 14:26 | Outpatient (CLI) | payer MEDICAID, SELFPAY ==
[2019-07-02 15:59] VITALS: BMI 29.2
[2019-07-12 03:06] LABS: QNTFERON TB Mitogen Value > 10.00 IU/mL (.); QNTFERON TB Nil Value 0.04 IU/mL (.); QNTFERON TB1+ Ag Value 0.05 IU/mL (.); QNTFERON TB2+ Ag Value 0.03 IU/mL (.)
[2019-07-12 04:44] LABS: QNTIFERON TB Positive Criteria Negative (Negative)
== END ==
PROVIDERS: Referring Provider Dermatology; Visit Provider Dermatology
DX: L40.0 Psoriasis vulgaris (principal); Z79.899 Other long term (current) drug therapy
CPT/HCPCS: 36415; 86480; 93923; 93970

== ENCOUNTER 2019-07-16 09:14 | Outpatient (RCR) | payer MEDICAID, SELFPAY ==
[2019-07-02 15:59] VITALS: BMI 29.2
[2019-07-12 00:29] VITALS: BP 148/63; PULSE 81; RESP 18; TEMP 36.6
[2019-07-16 13:11] VITALS: BP 179/86; PULSE 75; RESP 18; TEMP 36.9; BMI 29.2
--- NOTE | 2019-07-16 17:06 | PN.PCM_ITS ---
(1) Skin ulcer of left foot Status: Chronic Qualifiers: Non-pressure ulcer stage: limited to breakdown of skin Qualified Code(s): L97.521 - Non-pressure chronic ulcer of other part of left foot limited to breakdown of skin Code(s): L97.529 - Non-pressure chronic ulcer of other part of left foot with unspecified severity Type of Wound Date of Service: 07/16/19 Chief Complaint: left foot ulcers History of Wound: This 63-year-old male was seen previously by Dr. Andino for ulcer of his right leg and skin irritation as well as ulceration of left medial foot. He also has left foot cracking that is very raw. He has had follow-up with his primary care provider Patsy Montenegro as well as dermatology. He was recently treated with oral antibiotic and 2 courses of oral steroids with improvemnt in his skin irritation and plaques. He has used clobetasol previously to his psoriasis and most recently has been prescribed triamcinolone acetonide by dermatology in the last 2 weeks which he notes has significantly improved his skin irritation since he was seen by Dr. Andino. He relates the itching and redness have improved to his legs and both upper extremities and the skin on his back. He smokes 2 packs of cigarettes a day. His noninvasive vascular studies were temporarily canceled due to the coronavirus pandemic and have been rescheduled for 07/09/2019. He wears Tubigrip's for edema management. He denies fever, chill, nausea vomiting, or odor. 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 He has been using steroid cream and has notable improvement with decrease in drainage and is healed. - Physical Exam Vital Signs Temp Pulse Resp BP 98.5 F 75 18 179/86 H 07/16/19 13:11 07/16/19 13:11 07/16/19 13:11 07/16/19 13:11 General: Alert, Oriented x3, Cooperative, No apparent distress HEENT: Atraumatic, Normocephalic Skin: Ulcer/ Wound, Rash Present Wound Measurements and Assessment WC - Nurse 1 - General Ulcer Measurement Start: 07/16/19 13:11 Freq: Status: Active Protocol: Activity Type Activity Date Activity User E-Sign Co-Sign Detail Recorded Client Recorded Date Recorded By Document 07/16/19 13:11 RB [id number] 07/16/19 13:17 RB 07/16/19 13:11 Wound Center Nurse 1 [Ulcer Assessment] #3 LEFT MEDIAL HEEL -Combined with other wound No -Current Size (cm) - Length 0.1 -Current Size (cm) - Width 0.1 -Current Size (cm) - Depth 0.1 -Total Square Cm 0.01 -Tunneling No -Undermining/Tunneling No -Circular Undermining No -Exudate Amt Small -Exudate Type Serosanguineous -Wound Margin Flat & Intact -Granulation Amt Medium (34-66%) -Granulation Quality [place] -Slough/Fibrin Yes -Necrosis Amt Small (1-33%) -Necrotic Tissue Type Adherent Slough -Structure Exposed N/A -Texture ([place]-wound Skin Appearance) Assessed -Moisture ([place]-wound Skin Appearance Dry/Scaly ) -Color ([place]-wound Skin Appearance) Assessed -Temperature ([place]-wound Skin No Abnormality Appearance) (Pt Warm) -Tenderness on Palpation ([place]-wound No Skin Appearance) -Ulcer Cleansing Wound Cleanser -Foul Odor after Cleansing No -Anesthetic Used 5% Lidocaine Gel #2- L PLANTAR TOE (1-4) CREASE CLUSTER /FISSURES -Combined with other wound No -Current Size (cm) - Length 0 -Current Size (cm) - Width 0 -Current Size (cm) - Depth 0 -Total Square Cm 0 -Photo Taken Yes -Tunneling No -Undermining/Tunneling No -Circular Undermining No -Exudate Amt None Present -Wound Margin Flat & Intact -Granulation Amt Large (67-100%) -Granulation Quality [place] -Slough/Fibrin No -Necrosis Amt None Present (0 %) -Structure Exposed N/A -Texture ([place]-wound Skin Appearance) Assessed -Moisture ([place]-wound Skin Appearance Dry/Scaly ) -Color ([place]-wound Skin Appearance) Assessed -Temperature ([place]-wound Skin No Abnormality Appearance) (Pt Warm) -Tenderness on Palpation ([place]-wound No Skin Appearance) -Ulcer Cleansing Wound Cleanser -Foul Odor after Cleansing No WC - Nurse 2 - General Ulcer CM Notes Start: 07/16/19 13:11 Freq: Status: Active Protocol: Activity Type Activity Date Activity User E-Sign Co-Sign Detail Recorded Client Recorded Date Recorded By Document 07/16/19 14:13 DV [id number] 07/16/19 14:18 DV 07/16/19 14:13 Wound Center Nurse 2 [Procedure/Treatment] #3 LEFT MEDIAL HEEL -Time 14:16 -Correct Patient Yes -Correct Side, Site, Position Yes -Correct Procedure No -Procedure Performed No -Post Debridement Size (cm) - Length 0 -Post Debridement Size (cm) - Width 0 -Post Debridement Size (cm) - Depth 0 -Total Square Cm 0 -Wound/Ulcer Outcome Healed- Epithelialized #2- L PLANTAR TOE (1-4) CREASE CLUSTER /FISSURES -Time 14:16 -Correct Patient Yes -Correct Side, Site, Position Yes -Correct Procedure No -Procedure Performed No -Post Debridement Size (cm) - Length 0 -Post Debridement Size (cm) - Width 0 -Post Debridement Size (cm) - Depth 0 -Total Square Cm 0 -Wound/Ulcer Outcome Healed- Epithelialized [See Physician Procedure note for Specifics] Pain Scale: 0-10 Numeric [Pain] -Is Patient Pain Free? Yes Psych/Mental Status: Normal Affect, Appropriate Debridement Note Post-Debridement Measurements/Treatment WC - Nurse 2 - General Ulcer CM Notes Start: 07/16/19 13:11 Freq: Status: Active Protocol: Activity Type Activity Date Activity User E-Sign Co-Sign Detail Recorded Client Recorded Date Recorded By Document 07/16/19 14:13 DV [id number] 07/16/19 14:18 DV 07/16/19 14:13 Wound Center Nurse 2 #3 LEFT MEDIAL HEEL -Time 14:16 -Correct Patient Yes -Correct Side, Site, Position Yes -Correct Procedure No -Procedure Performed No -Post Debridement Size (cm) - Length 0 -Post Debridement Size (cm) - Width 0 -Post Debridement Size (cm) - Depth 0 -Total Square Cm 0 -Wound/Ulcer Outcome Healed- Epithelialized #2- L PLANTAR TOE (1-4) CREASE CLUSTER/ FISSURES -Time 14:16 -Correct Patient Yes -Correct Side, Site, Position Yes -Correct Procedure No -Procedure Performed No -Post Debridement Size (cm) - Length 0 -Post Debridement Size (cm) - Width 0 -Post Debridement Size (cm) - Depth 0 -Total Square Cm 0 -Wound/Ulcer Outcome Healed- Epithelialized Pain Scale: 0-10 Numeric Is Patient Pain Free? Yes Wound debrided: Medial heel Laterality: Left No debridement was completed today - Additional Wound Wound debrided: Plantar toes Laterality: Left Operative Diagnosis: No debridement was completed today Assessment/Plan Assessment: Right leg ulcer, fat layer exposed?improving. Left foot ulcer, skin layer exposed?stable. Skin dermatitis potentially psoriatic related versus oth er etiology. Peripheral vascular disease suspected. Lower extremity edema mild. Malnutrition suspected. Alcohol abuse. Tobacco abuse Plan: The left medial foot ulcer is healed. The creases of his toes of his left foot are healed today as well. He will continue to use triamcinolone. He is to wash his legs gently with soap and water on a daily basis. To avoid soaking. To elevate the limbs at rest. Noninvasive vascular testing did not show any occlusive arterial disease or venous disease at this time. We previously also discussed the importance of proper nutrition and advised him to eat 3 well- balanced meals a day and to significantly reduce his alcohol intake. Smoking cessation was also discussed in detail. Hemoglobin A1c was 5.8%. There were no other gross abnormalities noted. He will be discharged to follow up as needed.
== END 2019-08-10 23:59 ==
LOC: WC 09:14
PROVIDERS: Referring Provider Family Medicine; Visit Provider Family Medicine
DX: Z09 Encounter for follow-up examination after completed treatment for conditions other than malignant neoplasm (principal); L40.0 Psoriasis vulgaris; R60.0 Localized edema; F17.210 Nicotine dependence, cigarettes, uncomplicated
CPT/HCPCS: 99212; G0463